=== PATIENT | female | born 1940 | race Caucasian/White ===

== ENCOUNTER → 2016-09-24 | Outpatient (CLI) | payer OTHER | END | disposition home or self-care (01) | LOC: C.LABSPEC 15:13 | PROVIDERS: ATTEND Podiatrist | DX: B35.1 Tinea unguium (principal) ==

== ENCOUNTER → 2016-11-30 | Outpatient (CLI) | payer OTHER ==
--- NOTE | 2016-11-30 12:57 | MAMMOGRAPHY REPORT ---
BILATERAL DIGITAL SCREENING MAMMOGRAM WITH CAD: 11/30/2016 CLINICAL HISTORY: Routine screening. Patient has no complaints. TECHNIQUE: Current study was also evaluated with a Computer Aided Detection (CAD) system. Bilateral CC and MLO views were obtained. COMPARISON: Comparison is made to exams dated: 06/21/2014 mammogram, 06/19/2013 mammogram, 06/17/2012 m ammogram, 06/06/2011 mammogram, 06/05/2010 mammogram, and 06/03/2009 mammogram - [facility] nter. BREAST COMPOSITION: The tissue of both breasts is heterogeneously dense, which may obscure small mas ses. FINDINGS: No suspicious masses, calcifications, or areas of architectural distortion are noted in ei ther breast. There has been no significant interval change compared to prior exams. IMPRESSION: ACR BI-RADS CATEGORY 1: NEGATIVE There is no mammographic evidence of malignancy. A 1 year screening mammogram is recommended. The pa tient will receive written notification of the results. Approximately 10% of breast cancers are not detected with mammography. A negative mammographic report should not delay biopsy if a clinically suggestive mass is present. Doreen Boyd M.D. /:11/30/2016 10:45:12 Optometric Technologist: Nyla Camargo, [facility] letter sent: Normal 1/2 BI-RADS Code: ACR BI-RADS Category 1: Negative
== END | disposition home or self-care (01) ==
LOC: C.MAMM 08:58
PROVIDERS: ATTEND Family Medicine
DX: Z12.31 Encounter for screening mammogram for malignant neoplasm of breast (principal)

== ENCOUNTER → 2017-01-18 | Outpatient (CLI) | payer OTHER ==
[2017-01-18 09:55] LABS: CHOLESTEROL/HDL RATIO 2.9
== END | disposition home or self-care (01) ==
LOC: C.LAB 07:47
PROVIDERS: ATTEND Family Medicine
DX: Z13.220 Encounter for screening for lipoid disorders (principal); Z13.1 Encounter for screening for diabetes mellitus

== ENCOUNTER → 2017-02-25 | Outpatient (CLI) | payer OTHER | END | disposition home or self-care (01) | LOC: C.MAMM 13:00 | PROVIDERS: ATTEND Family Medicine | DX: M85.89 Other specified disorders of bone density and structure, multiple sites (principal) ==

== ENCOUNTER 2017-06-06 15:13 | Emergency (ER) | payer OTHER ==
[~2017-06-06] VITALS: Ht 170.2 cm; Wt 88.0 kg
[2017-06-06 15:24] VITALS: TEMP 37.1; Ht 170.2 cm; Wt 88.0 kg
[2017-06-06] MEDS ORDERED: ACETAMINOPHEN 500 MG TAB PO STA (15:40)
--- NOTE | 2017-06-06 15:55 | EMERGENCY ROOM VISIT NOTE ---
ED Visit Note First contact with patient: 15:31 CHIEF COMPLAINT: Left knee pain HISTORY OF PRESENT ILLNESS: This 76-year-old female patient presents to the emergency department via BLS ambulance, approximately1-2 hours after sustaining an injury to the left knee while walking the dog. The patient reports having left knee pain for approximately one week. She states the pain has been worse after sitting for long periods of time, and seems to improve as she was up walking and moving around. She states the pain has gradually been worsening throughout the past week. This morning, she was walking the dog, and all of a sudden while in the middle of the walk, and after no specific injury, she began experiencing significantly worsening pain of the left knee with weightbearing. She was having difficulty with ambulation due to the pain. She did contact the PCP, and was going to be seen outpatient, however when she tried to shower, she was unable to bear weight on the left leg. She called EMS at that time to be seen in the emergency department. The patient denies any other injuries besides their knee. The patient does report swelling, but no bruising. There is pain in the superior/anterior aspect of the knee. They rate the pain as sharp and 8/10. The patient states they were able to walk on it, but now are unable to do this. No numbness or tingling. No previous injuries to this knee. No redness. No hx. of DVT. No ankle, foot or hip pain. Of note, the patient did have dental surgery last week, and was on antibiotics for a few days. She states she was taking amoxicillin. REVIEW OF SYSTEMS: A 6 system review of systems was completed with positives and pertinent negatives listed in the HPI. ALLERGIES: None MEDICATIONS: None PMH: Glaucoma SOCIAL HISTORY: The patient lives locally with family. She denies drug, alcohol , tobacco use. PHYSICAL EXAM: Vital Signs: Reviewed Nurse's notes, vital signs stable. GENERAL : This is a 76-year-old white female, no acute distress, but appears in pain, well-developed, well-nourished. MENTAL STATUS: Alert, oriented to person place and time, and cooperative. MUSCULOSKELETAL: The left knee is moderately swollen. There is no ecchymosis. There is joint effusion present. The patient is tender in the superior, lateral aspect of the knee, superior to the patella. There is no joint line tenderness. The patella does appropriately subluxate. Range of motion is full, however full extension is painful. Strength of the quads and hamstrings is 3/5. Harpreet's is negative. Aniyah's and Anterior Drawer tests are negative. There is discomfort with varus and valgus stressing. The foot and toes are warm and well-perfused. Dorsalis pedis pulse 2+. Sensation to pain and light touch is intact. Capillary refill less than 2 seconds. RADIOLOGY: L KNEE 3 VIEWS FINDINGS: Alignment of the left knee is anatomic. No fracture or suspicious lesion is present. There is a small left knee joint effusion. There is joint space narrowing and osteophytosis of the patellofemoral compartment. There is mild osteoarthritis within the medial compartment. IMPRESSION: 1. No acute fracture. 2. Small left knee joint effusion. 3. Moderate osteoarthritis of the patellofemoral compartment and mild osteoarthritis of the medial compartment. EMERGENCY DEPARTMENT COURSE: I examined the patient. She was given 1000mg Tylenol for her pain with minimal relief. X-rays of the left knee were reviewed by myself and read by radiology and reveal mild-moderate osteoarthritis. The patient was placed in a knee immobilizer under my direction and the position was satisfactory. The patient was instructed on the use of a walker, and was assisted with ambulation prior to discharge. All questions were answered to the patient's satisfaction. She was encouraged to follow-up outpatient with orthopedics for further management and care. The patient was discharged home in good condition. I attest that I have personally reviewed the patient's current medication list. Patient was found to have normal blood pressure on screening and does not require follow-up. DIFFERENTIAL DIAGNOSIS: Fracture, contusion, sprain, strain, osteoarthritis, tendinitis, malignancy, and others DIAGNOSIS: left knee pain, osteoarthritis Current/Historical Medications No Active Prescriptions or Reported Meds Allergies Coded Allergies: No Known Allergies (Unverified , 06/06/17) Vital Signs Date Time Temp Pulse Resp B/P (MAP) Pulse Ox O2 Delivery O2 Flow Rate FiO2 06/06/17 17:42 76 20 135/84 96 06/06/17 15:24 37.1 83 18 140/68 97 Room Air Medications Administered Medications (Trade) Dose Ordered Sig/Vianney Route Start Time Stop Time Status Last Admin Dose Admin Acetaminophen (Tylenol Tab) 1,000 mg NOW STAT PO 06/06/17 15:40 06/06/17 15:41 DC 06/06/17 15:49 1,000 MG Departure Information Impression Primary Impression: Knee pain Additional Impression: Osteoarthritis Dispostion Home / Self-Care Condition GOOD Prescriptions No Active Prescriptions or Reported Meds Referrals Clarice Spencer MD (PCP) Tree Smith M.D. Patient Instructions ED Immobilizer Knee, ED Knee Pain [facility], Knee Osteoarthritis, [facility] Additional Instructions You have been treated in the Emergency Department for Knee Pain. For pain control, you can use the following [id number] medicines (if >12 yo): Ibuprofen(Motrin, Advil) may be used for fever or pain. Use 600mg every six hours as needed. Take with food. Avoid using more than 2400mg in a 24 hour period. Do not use 2400mg per day for more than three consecutive days without physician direction. Prolonged inappropriate use can lead to stomach upset or ulcers. (AND/OR) Acetaminophen(Tylenol) may be used for fever or pain. Use 1000mg every six hours as needed. Avoid using more than 3000mg in a 24 hour period. You may consider Fish Oil (2000mg daily), Glucosamine (as directed on bottle), and Tumeric (500mg daily) to help with arthritis pain. If this is a recent injury (<24 hrs), ice can be applied to the area of pain for the first 3 days to help decrease pain and inflammation. Ice massages can be performed by freezing water in a paper cup, peeling back the cup to expose the ice and then massaging over the affected area. You have been provided the number for an Orthopaedic Surgeon. You should call this number as soon as possible to establish a follow-up visit from today's Emergency Department visit. Follow-up with the PCP within 1 week if you are unable to be seen by orthopedics before then. Keep the knee brace in place until cleared by Orthopedics or until pain free. Use the crutches you have been provided to keep ALL weight off of the knee until weight bearing is tolerable. Return to the Emergency Department if your current symptoms worsen despite treatment course outlined above. Problem Qualifiers Primary Impression: Knee pain Chronicity: acute Laterality: left Qualified Codes: M25.562 - Pain in left knee Additional Impression: Osteoarthritis Osteoarthritis location: knee Osteoarthritis type: unspecified Laterality: left Qualified Codes: M17.12 - Unilateral primary osteoarthritis, left knee
--- NOTE | 2017-06-06 16:48 | DIAGNOSTIC IMAGING REPORT ---
L KNEE 3 VIEWS CLINICAL HISTORY: Left knee pain. COMPARISON: None FINDINGS: Alignment of the left knee is anatomic. No fracture or suspicious lesion is present. There is a small left knee joint effusion. There is joint space narrowing and osteophytosis of the patellofemoral compartment. There is mild osteoarthritis within the medial compartment. IMPRESSION: 1. No acute fracture. 2. Small left knee joint effusion. 3. Moderate osteoarthritis of the patellofemoral compartment and mild osteoarthritis of the medial compartment. Electronically signed by: Corky Mcdonald M.D. 06/06/2017 4:47 PM Dictated Date/Time: 06/06/2017 4:46 PM
[2017-06-06 17:42] VITALS: BP 135/84; PULSE 76; O2SAT 96
== END 2017-06-06 17:45 | disposition home or self-care (01) ==
LOC: EDBD 15:13 → C.EDD 15:17
DX: M25.562 Pain in left knee (principal); M17.12 Unilateral primary osteoarthritis, left knee; M25.462 Effusion, left knee; H40.9 Unspecified glaucoma

== ENCOUNTER → 2017-08-12 | Outpatient (CLI) | payer OTHER ==
[2017-08-12 09:40] LABS: BASO % 0.4 %; BASO ABS # 0.03 K/uL (0-0.2); EOS % 2.7 %; EOS ABS # 0.18 K/uL (0-0.5); HEMATOCRIT 43.4 % (37-47); HEMOGLOBIN 14.4 g/dL (12.0-16.0); IG# 0.01 K/uL (0.00-0.02); LYMPH % 26.9 %; LYMPH ABS # 1.82 K/uL (1.2-3.4); MEAN CELL VOLUME 98.9 fL (80-100); MEAN CORPUSCULAR HEMOGLOBIN 32.8 pg (25-34); MEAN CORPUSCULAR HGB CONC 33.2 g/dl (32-36); MEAN PLATELET VOLUME 11.6 fL (7.4-10.4); MONO ABS # 0.61 K/uL (0.11-0.59); NEUT % 60.9 %; NEUT ABS # 4.12 K/uL (1.4-6.5); PLATELET COUNT 231 K/uL (130-400); RED CELL DISTRIBUTION WIDTH CV 12.6 % (11.5-14.5); RED CELL DISTRIBUTION WIDTH SD 45.8 fL (36.4-46.3); WHITE BLOOD COUNT 6.77 K/uL (4.8-10.8)
== END | disposition home or self-care (01) ==
LOC: C.LAB 08:10
PROVIDERS: ATTEND Orthopaedic Surgery Sports Medicine
DX: M84.452 Pathological fracture, left femur (principal); X58.XXXD Exposure to other specified factors, subsequent encounter

== ENCOUNTER → 2017-08-28 | Day surgery (SDC) | payer OTHER ==
[2017-07-12 15:48] VITALS: BMI 28.0
--- NOTE | 2017-08-27 16:16 | HISTORY & PHYSICAL EXAMINATION ---
DATE OF ADMISSION: 08/28/2017 CHIEF COMPLAINT: Left knee injury. HISTORY OF PRESENT ILLNESS: The patient has 1 month history of left knee pain and instability. She has been using a cane, describing some catching-type activities. Most of her pain is medial. MRI has confirmed a stress fracture of medial femoral condyle that being an insufficiency fracture. She also has a medial meniscus tear at the root. After failure of conservative treatment and given her diagnosis, the patient wished to proceed with a left knee arthroscopic partial medial meniscectomy, repair of insufficiency fracture of the medial femoral condyle with bone substitute injection. PAST MEDICAL HISTORY: Obesity. Otherwise, this is a healthy 76-year-old female with no heart, lung cancer, or diabetic history. SOCIAL HISTORY: The patient was a lifelong smoker. She quit in 1972. She is a nonalcohol user. PAST SURGICAL HISTORY: D and C, oral surgery, and eye surgery. REVIEW OF SYSTEMS: The patient complains of left knee pain and instability. Otherwise denies any shortness of breath, chest pain, nausea, vomiting or any other joint complaints. MEDICATIONS: No regular medications. ALLERGIES: No known drug allergies. PHYSICAL EXAMINATION: GENERAL: Well-developed, well-nourished 76-year-old female, in no acute distress. She is alert and oriented x3 and pleasant. HEENT: Normocephalic, atraumatic. Extraocular muscles are intact. Pupils are equal, reactive to light. HEART: Regular rate and rhythm. No murmurs appreciated. LUNGS: Clear. ABDOMEN: Soft, nontender, bowel sounds present. EXTREMITIES: Left knee reveals medial joint line tenderness as well as medial femoral condyle tenderness. She has positive Alex's medially. She has painful range of motion, although it is full. She has 4/5 strength due to pain. NEUROLOGIC: Neurovascularly, she is intact in her left lower extremity. DIAGNOSES: Left knee insufficiency fracture of medial femoral condyle and medial meniscus tear. She also has a history of obesity. PLAN: This is a patient of Dr. Luis. She is a 76-year-old female. The patient wished to proceed with a left knee arthroscopic partial medial meniscectomy and repair of insufficiency fracture, medial femoral condyle with bone injection substitute. Necessary consent forms, preoperative clearances will be obtained.
[~2017-08-28] VITALS: Ht 170.2 cm; Wt 85.0 kg
[~2017-08-28] MED LIST: ATROPINE SULFATE 0.1 MG/ML 5ML SYR IV PRN; BUPIVACAINE 0.25% 30 ML VIAL ONE; CEFAZOLIN 2000MG IV PUSH 15 ML IV SCH; EpINEphrine HCL INJ 1 MG/ML 1ML SYRINGE ONE; FENTANYL CITRATE INJ 50 MCG/1 ML 2 ML VIAL ONE; HYDR-5688 PO; HYDROCODONE/ACETAMIN 5/325MG TAB PO PRN; IBUP200T80 PO; KETOROLAC TROMETHAMINE 15 MG/ML VIAL IV. PRN; KETOROLAC TROMETHAMINE 30 MG/ML VIAL ONE; LACTATED RINGER'S 1000ML 1,000 ML IV SCH; LIDOCAINE HCL 2% 2 ML VIAL (20MG/ML) ONE; MIDAZOLAM HCL 1 MG/ML 2ML VIAL ONE; MoRPHine SULFATE 2 MG/ML CARP ONE; ONDANSETRON INJ 2 MG/ML 2 ML VIAL IV PRN; ONDANSETRON INJ 2 MG/ML 2 ML VIAL ONE; PROPOFOL IV EMULSION 10 MG/ML 20 ML VIAL IV ONE; SODIUM CHLORIDE 0.9% 1000ML 1,000 ML IV SCH
[2017-08-28 05:37] VITALS: BP 158/76; PULSE 72; TEMP 36.7; O2SAT 100; Ht 170.2 cm; Wt 85.0 kg
--- NOTE | 2017-08-28 06:46 | History & Physical Bridge Note ---
H&P Re-Evaluation Bridge Note: I have examined the patient, reviewed the History & Physical and in the interval since the performance of the History & Physical I have noted the following changes of clinical significance: No changes noted
--- NOTE | 2017-08-28 08:08 | Discharge Instructions ---
Discharge Instructions Date of Service Aug 28, 2017. Admission Reason for Admission: Left Knee Insufficiency Fracture Medial Femoral Co Discharge Discharge Diagnosis / Problem: LEFT KNEE SCOPE, PARTIAL MEDIAL MENISECTOMY, INJECTION BONE SUBSTITUTE Discharge Goals Goal(s): Improve function Activity Recommendations Activity Limitations: as noted below . Instructions / Follow-Up Instructions / Follow-Up MAY WEIGHT BEAR TOLERATED BUT MUST USE A WALKER UNTIL FOLLOW UP IN OFFICE. ICE/ ELEVATE LEG NEEDED. MAY CHANGE DRESSING POST OP DAY #2 AND REPL[address] WITH BAND AIDES OVER PORTAL INCISIONS. MAY SHOWER POST OP DAY #2, DO NOT SUBMERGE INCISIONS UNDERWATER. NORCO PAIN MEDICINE DIRECTED NEEDED. NO FORMAL PHYSICAL THERAPY NEEDED UNTIL AFTER FOLLOW UP IN THE OFFICE, MAY DO QUAD SETS AND STRAIGHT LEG RAISES AT HOME. FOLLOW UP WITH DR. SWANSON 10-12 DAYS POST OP, CALL [phone] TO CONFIRM APPT. Current Hospital Diet Patient's current hospital diet: Discharge Diet Recommended Diet: Regular Diet Pending Studies Studies pending at discharge: no Medical Emergencies . Who to Call and When: Medical Emergencies: If at any time you feel your situation is an emergency, please call 911 immediately. . Non-Emergent Contact Non-Emergency issues call your: Primary Care Provider . "Provider Documentation" section prepared by Rigoberto Noyola. . [place] Drug Monitoring Program Search Results: patient reviewed within database, no issues identified
--- NOTE | 2017-08-28 08:20 | [facility] Post Operative Brief Note ---
Immediate Operative Summary Operative Date Aug 28, 2017. Pre-Operative Diagnosis Left knee insufficiency fracture of medial femoral condyle and medial meniscus tear. Post-Operative Diagnosis Same as preoperative. Procedure(s) Performed Left Knee Arthroscopic Repair of Insufficiency Fracture Medial Femoral Condyle with Injection Bone Substitue, Partial Medial Menisectomy,chondroplasty medial compartment and patellofemoral joint Surgeon Flume Worker Surgeon(s) None Estimated Blood Loss 3ML Findings Consistent with Post-Op Diagnosis Specimens None per surgeon Drains None Anesthesia Type General Complication(s) none
[2017-08-28] MEDS: FENTANYL CITRATE INJ 50 MCG/1 ML 2 ML VIAL IV PRN ×4 (08:38→08:53)
--- NOTE | 2017-08-28 08:46 | DIAGNOSTIC IMAGING REPORT ---
INTRAOPERATIVE RADIOGRAPH CLINICAL HISTORY: Insufficiency fracture of the left knee. Fluoroscopy time: 35 seconds. FINDINGS: A single spot fluoroscopic image of the left knee is presented. A surgical probe projects over the medial femoral condyle. Cement material is noted. No cement material is identified and joint space. No distracted fracture is seen. IMPRESSION: Intraoperative image from femoral insufficiency fracture repair as above. See operative report for detailed findings. Electronically signed by: Duran Addison M.D. 08/28/2017 8:45 AM Dictated Date/Time: 08/28/2017 8:44 AM
--- NOTE | 2017-08-28 09:03 | Anesthesiology Progress Note ---
Anesthesia Post Op Note Date & Time Aug 28, 2017 at 09:03 Vital Signs Vital Signs Past 12 Hours Date Time Temp Pulse Resp B/P (MAP) Pulse Ox O2 Delivery O2 Flow Rate FiO2 08/28/17 08:40 74 16 144/76 100 Oxymask 10 08/28/17 08:30 85 19 112/86 100 Oxymask 10 08/28/17 08:23 36.5 81 12 146/89 98 Oxymask 10 08/28/17 05:37 36.7 72 20 158/76 (103) 100 Room Air Notes Mental Status: alert / awake / arousable, participated in evaluation Pt Amnestic to Procedure: Yes Nausea / Vomiting: adequately controlled Pain: adequately controlled Airway Patency, RR, SpO2: stable & adequate BP & HR: stable & adequate Hydration State: stable & adequate Anesthetic Complications: no major complications apparent
[2017-08-28 09:25] VITALS: BP 143/67; PULSE 61; TEMP 36.4; O2SAT 95
[2017-08-28 09:55] VITALS: BP 130/61; PULSE 62; TEMP 36.5; O2SAT 97
[2017-08-28 10:25] VITALS: BP 128/61; PULSE 63; TEMP 36.5; O2SAT 97
--- NOTE | 2017-08-28 20:07 | OPERATIVE REPORT ---
undulationDATE OF OPERATION: 08/28/2017 INDICATION FOR PROCEDURE: The patient is a 76-year-old female who presents with pain and discomfort in her left knee. She was worked up with plain x-rays, which demonstrated maintained good joint spaces. MRI, however, demonstrated bone edema in the medial femoral condyle consistent with insufficiency fracture in medial femoral condyle, bone marrow lesion, and has a root detachment posterior horn of the medial meniscus with intrameniscal degenerative changes. She has joint effusion. PREOPERATIVE DIAGNOSIS: Left knee insufficiency fracture, medial femoral condyle; root detachment posterior horn of the medial meniscus with medial meniscus tear; degenerative joint disease, medial compartment. POSTOPERATIVE DIAGNOSIS: Left knee insufficiency fracture, medial femoral condyle; root detachment posterior horn of the medial meniscus with medial meniscus tear; degenerative joint disease, medial compartment; and patellofemoral degenerative joint disease. PROCEDURE: Left knee arthroscopy with partial meniscectomy, chondroplasty of patellofemoral joint medial compartment and repair insufficiency fracture, medial femoral condyle, left femur with injectable bone substitute. SURGEON: Tony Meyer MD BLUEPRINT ASSEMBLER: None. ANESTHESIA: General. OPERATIVE PROCEDURE: The patient was taken to the operating room and anesthetized under general anesthetic. Pneumatic tourniquet was placed on her left upper thigh. Left knee exam demonstrated good range of motion, moderately large effusion and no instability. Left lower extremity was prepped and draped in sterile fashion. Leg was elevated, exsanguinated with an Esmarch bandage. Pneumatic tourniquet was raised to 325 mmHg. Arthroscopy was initiated with inferolateral arthroscopy portal and inferior medial arthroscopy portal was made. The following findings were noted. The patellofemoral joint, she had global grade 3 wear on the patella, the trochlear groove an advanced grade 3, and the lower aspect was grade 4 wear of the articular cartilage in the central trochlear groove toward the lateral femoral condyle. There were delaminating flaps around the areas of grade 4 wear. In the medial compartment, she had significant articular thinning grade 3 wear of the medial femoral condyle with flattening flaps around the quite thin area of articular cartilage in the femoral condyle. She had a lot of undulation fissures and erosion in the tibial plateau articular surface as well but no loose articular cartilage there, but there was thinning grade 2-3 wear on tibial plateau. Medial meniscus, she had a root detachment of posterior horn with small inner margin flap. Cruciate ligaments were intact. Lateral compartment had good articular surfaces and normal lateral meniscus. There were some loose cartilaginous debris floating about the knee. An arthroscopic chondroplasty was performed to the affected areas of grade 3 wear and the laminating flaps moving all loose laminating flaps and smoothing down grade 3 areas of wear. All loose fragments were removed from the knee joint. A partial medial meniscectomy was performed by trimming the small flap tear, removing that completely and tapering the edges of the torn posterior horn and the remainder meniscus was probed noted to be stable. Knee was irrigated free of any debris. Then the fluoroscopy was brought in. Used a spinal needle to localize the area of the medial femoral condyle insufficiency fracture in AP and lateral views then the trocar was advanced into the femoral condyle and the injectable bone substitute was mixed and injected and allowed the appropriate 8 minutes to allow this to harden. Trocar was removed. The knee was injected with 30 mL of Marcaine with epinephrine. Port sites were closed with nylon sutures. Sterile dressings were applied and tourniquet was let down and the patient tolerated the procedure well. I attest to the content of the Intraoperative Record and any orders documented therein. Any exceptions are noted below. JULIANNA
== END | disposition home or self-care (01) ==
LOC: C.ACU 04:53
PROVIDERS: ATTEND Orthopaedic Surgery Sports Medicine
DX: M84.452A Pathological fracture, left femur, initial encounter for fracture (principal); S83.242A Other tear of medial meniscus, current injury, left knee, initial encounter; M17.12 Unilateral primary osteoarthritis, left knee; M22.2X2 Patellofemoral disorders, left knee; X58.XXXA Exposure to other specified factors, initial encounter; E66.9 Obesity, unspecified; Z87.891 Personal history of nicotine dependence; Z79.899 Other long term (current) drug therapy

== ENCOUNTER 2019-04-15 23:23 | Observation (INO) ==
[2019-04-15] MEDS ORDERED: SODIUM CHLORIDE 0.9% 1000ML 1,000 ML IV ONE (23:51)
[2019-04-16 00:06] LABS: Basophils # (auto) 0.03 K/uL (0-0.2); Basophils % (auto) 0.4 %; Eosinophils # (auto) 0.24 K/uL (0-0.5); Eosinophils % (auto) 3.2 %; Hematocrit (blood only) 40.6 % (37-47); Hemoglobin 13.9 g/dL (12.0-16.0); Immature Granulocytes # (auto) 0.01 K/uL (0.00-0.02); Immature Granulocytes % (auto) 0.1 %; Lymphocytes # (auto) 2.79 K/uL (1.2-3.4); Lymphocytes % (auto) 36.7 %; Mean Corpuscular Hemoglobin 33.5 pg (25-34); Mean Corpuscular Hgb Conc 34.2 g/dL (32-36); Mean Corpuscular Volume 97.8 fL (80-100); Mean Platelet Volume 11.6 fL (7.4-10.4); Monocytes # (auto) 1.03 K/uL (0.11-0.59); Monocytes % (auto) 13.6 %; Platelet Count 220 K/uL (130-400); RDW Coefficient of Variation 12.4 % (11.5-14.5); RDW Standard Deviation 44.2 fL (36.4-46.3); Red Blood Count 4.15 M/uL (4.2-5.4)
[2019-04-16 00:18] LABS: Prothrombin Time 9.9 Seconds (9.0-12.0)
[2019-04-16 00:37] LABS: Alanine Aminotransferase 25 U/L (12-78); Albumin Level 3.3 gm/dl (3.4-5.0); BUN Creatinine Ratio 26.3 (10-20); Blood Urea Nitrogen 24 mg/dl (7-18); Calcium 9.9 mg/dl (8.5-10.1); Carbon Dioxide 25 mmol/L (21-32); Chloride 110 mmol/L (98-107); Creatinine Clr Calc Pharmacy 58.2 ml/min; Est GFR (African American) 70.1; Est GFR (Non-African American) 60.5; Glucose 97 mg/dl (70-99); Lipase 216 U/L (73-393); Sodium 140 mmol/L (136-145)
[2019-04-16 00:56] LABS: Albumin Globulin Ratio 0.8 (0.9-2); Alkaline Phosphatase 127 U/L (45-117); Aspartate Aminotransferase 20 U/L (15-37); Bilirubin,Total 0.2 mg/dl (0.2-1); Globulin 4.1 gm/dl (2.5-4.0); Magnesium 2.1 mg/dl (1.8-2.4); Potassium 4.3 mmol/L (3.5-5.1); Total Protein 7.4 gm/dl (6.4-8.2); Troponin I < 0.015 ng/ml (0-0.045)
[2019-04-16] MEDS ORDERED: OPTIRAY 320 125ml IV PRN (01:20)
[2019-04-16 01:27] LABS: T4 Free Thyroxine 0.86 ng/dl (0.8-1.6)
--- NOTE | 2019-04-16 02:03 | Emergency Department Note ---
Entered by Earlene Dean acting as a scribe for History of Present Illness General Chief complaint: Neuro Symptoms/Deficit Stated complaint: NUMBNESS ON RIGHT SIDEOF BODY Time Seen by Provider: 04/15/19 23:37 History of Present Illness Provider complaint: neurological symptoms Onset (ago): hour(s) (11) Pain Consistency: + other (episode) Maximum Pain Intensity: 3 Quality: + other (neurological symptoms) Associated symptoms: + denies other symptoms (congestion) and + other (right sided numbness starting in right upper extremity and radiating to right lower extremity, slight dizziness, can feel touch on right side, family history of stroke); no cough, no fever/chills and no headaches Treatments prior to arrival: none The patient is a 78 year old female who presents to the ED with complaints of an episode of neurological symptoms that started approximately 11 hours ago. The patient states that she had right sided numbness that started in her upper ex tremity which then radiated to her right lower extremity as time progressed. The patient states that she has slight dizziness as well. The patient denies fever, chills, cough, congestion and headache. The patient notes that she can feel touch to the right side of her body. The patient notes that she has a family history of stroke. The patient denies taking any treatments prior to arrival. Home Medications Home Medications Medication Instructions Recorded Confirmed Type No Known Home Medications 04/16/19 04/16/19 History Allergies Allergy/AdvReac Type Severity Reaction Status Date / Time No Known Drug Allergies Allergy NKDA Verified 04/16/19 00:13 Past Med/Surg History Medical History No known health problems Surgical History History of arthroscopy LEFT KNEE History of colonoscopy History of laparoscopy S/P laser trabeculoplasty of eye RIGHT Family History Brother Prostate cancer Mother Cervical cancer Father Prostate cancer Social History Preferred Language: Romansh Communication Ability: Effective Visual Impairment: No Limitations Hearing Ability: Normal Transportation Mechanic Required: No Beliefs That Will Affect Care: None marital status: Current Living Situation: Spouse current occupational status: retired Other Information That Helps Us Care for You: No Feels Safe at Home: Yes Safety Concerns: Feels Safe At This Time Smoking Status: Unknown if ever smoked Hx Alcohol Use: No Hx Substance Use: No Childhood Exposure to Second-Hand Smoke: Yes Dental Care, Regularly: Yes Physical Activity Frequency: Daily Seatbelt Use: always Sunscreen Use: Yes Review of Systems See HPI for pertinent positives & negatives. and A total of 10 systems reviewed and were otherwise negative Physical Exam Vital Signs Vital Signs - 24 hr 04/15/19 23:27 04/15/19 23:54 04/15/19 23:55 Temperature 36.6 C Temperature Source Oral Pulse Rate 70 Pulse Rate [Right Finger] 70 Pulse Rate from SpO2 Sensor Pulse Rhythm [Right Finger] Regular Pulse Strength [Right Finger] Normal Respiratory Rate 16 20 Respiratory Effort / Characteristics Non-Labored Spontaneous Non-Labored Spontaneous Respiratory Depth Normal Normal Respiratory Pattern Regular Blood Pressure 166/91 H Blood Pressure [Right Arm] 155/76 H Blood Pressure Mean 116 Blood Pressure Mean [Right Arm] 102 Blood Pressure Position Sitting Blood Pressure Position [Right Arm] Sitting Pulse Oximetry 99 95 94 Oxygen Delivery Method Room Air Room Air Room Air Sepsis Recent Fever Within 48 Hours No Sepsis Action Taken by Nursing No Action Required Pulse Oximetry Post Tiitration 95 04/16/19 01:23 04/16/19 02:01 04/16/19 02:30 Temperature Temperature Source Pulse Rate 64 66 Pulse Rate [Right Finger] 73 Pulse Rate from SpO2 Sensor 63 66 Pulse Rhythm [Right Finger] Pulse Strength [Right Finger] Respiratory Rate 20 17 12 Respiratory Effort / Characteristics Non-Labored Spontaneous Respiratory Depth Normal Respiratory Pattern Blood Pressure 141/77 H Blood Pressure [Right Arm] 156/96 H Blood Pressure Mean 98 Blood Pressure Mean [Right Arm] 116 Blood Pressure Position Blood Pressure Position [Right Arm] Lying Pulse Oximetry 97 96 97 Oxygen Delivery Method Room Air Sepsis Recent Fever Within 48 Hours Sepsis Action Taken by Nursing Pulse Oximetry Post Tiitration GENERAL: Awake, alert, well-appearing, in no distress HENT: Normocephalic, atraumatic. Oropharynx with dry mucous membranes and otherwise unremarkable. EYES: Normal conjunctiva. Sclera non-icteric. EOMI. No nystamgus. PEARRL. NECK: Supple. No nuchal rigidity. FROM. No JVD. RESPIRATORY: Clear to auscultation bilaterally. CARDIAC: Regular rate, normal rhythm. Extremities warm and well perfused. Pulses equal. ABDOMEN: Soft, non-distended. No tenderness to palpation. No rebound or guarding. No masses. RECTAL: Deferred. MUSCULOSKELETAL: Chest examination reveals no tenderness. The back is symmetrical on inspection without obvious abnormality. There is no CVA tende rness to palpation. No joint edema. LOWER EXTREMITIES: Calves are equal size bilaterally and non-tender. No edema. No discoloration. NEURO: Normal sensorium. No sensory or motor deficits noted. Cerebellar function intact, including finger to nose, alternating palms, heel to sloan. 5/5 strength and SILT x4 extremities. SKIN: No rash or jaundice noted. Course Course 2344: Past medical records reviewed. The patient was evaluated in room C4. A complete history and physical exam was performed. 0207: [facility] He will evaluate the patient for further management. Consultations Consultation #1: I discussed the [facility] He will evaluate the patient for further management. Time: 02:07 Administered Medications Ioversol (Optiray 320 125ml) 125 ml IV ONCE PRN PRN Reason: Interaction Checking Stop: 04/20/19 01:19 Last Admin: 04/16/19 01:21 Dose: 118 ml Documented by: [id number] Discontinued Medications Aspirin (Aspirin) 324 mg PO NOW STA Stop: 04/16/19 02:10 Last Admin: 04/16/19 02:42 Dose: 324 mg Documented by: [id number] Sodium Chloride (Nss 1000ml) 1,000 mls @ 999 mls/hr IV .Q1H1M ONE Stop: 04/16/19 00:51 Last Infusion: 04/16/19 01:20 Dose: 0 mls/hr Documented by: [id number] Admin: 04/15/19 23:59 Dose: 999 mls/hr Documented by: [id number] Medical Decision Making Differential Diagnosis Differential diagnosis: Etiologies such as metabolic, infection, hypo/hyperglycemia, electrolyte abnormalities, cardiac sources, intracerebral event, toxicologic, neurologic, as well as others were entertained. Medical Records Attestation: I reviewed the patient's medical records. Home Medications Current Medication List: was personally reviewed by me Laboratory Data Attestation: I reviewed the patient's lab results. Result diagrams: 04/15/19 23:41 04/15/19 23:41 Lab Results 04/15/19 04/15/19 04/15/19 Range/Units 23:41 23:41 23:41 WBC 7.60 (4.8-10.8) K/uL RBC 4.15 L (4.2-5.4) M/uL Hgb 13.9 (12.0-16.0) g/dL Hct 40.6 (37-47) % MCV 97.8 (80-100) fL MCH 33.5 (25-34) pg MCHC 34.2 (32-36) g/dL RDW Std Deviation 44.2 (36.4-46.3) fL RDW Coeff of Brando 12.4 (11.5-14.5) % Plt Count 220 (130-400) K/uL MPV 11.6 H (7.4-10.4) fL Immature Gran % (Auto) 0.1 % Neut % (Auto) 46.0 % Lymph % (Auto) 36.7 % Webb % (Auto) 13.6 % Eos % (Auto) 3.2 % Baso % (Auto) 0.4 % Immature Gran # (Auto) 0.01 (0.00-0.02) K/uL Neut # (Auto) 3.50 (1.4-6.5) K/uL Lymph # (Auto) 2.79 (1.2-3.4) K/uL Webb # (Auto) 1.03 H (0.11-0.59) K/uL Eos # (Auto) 0.24 (0-0.5) K/uL Baso # (Auto) 0.03 (0-0.2) K/uL PT 9.9 (9.0-12.0) Seconds INR 1.0 (0.9-1.1) Sodium 140 (136-145) mmol/L Potassium 4.3 (3.5-5.1) mmol/L Chloride 110 H (98-107) mmol/L Carbon Dioxide 25 (21-32) mmol/L Anion Gap 5.0 (3-11) BUN 24 H (7-18) mg/dl Creatinine 0.92 (0.6-1.2) mg/dl Est Cr Clr Drug Dosing 58.2 ml/min Est GFR ( Amer) 70.1 Est GFR (Non-Af Amer) 60.5 BUN/Creatinine Ratio 26.3 H (10-20) Glucose 97 (70-99) mg/dl Calcium 9.9 (8.5-10.1) mg/dl Phosphorus 3.0 (2.5-4.9) mg/dl Magnesium 2.1 (1.8-2.4) mg/dl Total Bilirubin 0.2 (0.2-1) mg/dl AST 20 (15-37) U/L ALT 25 (12-78) U/L Alkaline Phosphatase 127 H (45-117) U/L Troponin I < 0.015 (0-0.045) ng/ml Total Protein 7.4 (6.4-8.2) gm/dl Albumin 3.3 L (3.4-5.0) gm/dl Globulin 4.1 H (2.5-4.0) gm/dl Albumin/Globulin Ratio 0.8 L (0.9-2) Lipase 216 (73-393) U/L TSH 6.020 H (0.300-4.500) uIu/ml Free T4 0.86 (0.8-1.6) ng/dl Specimen Hemolysis Urine Color Urine Appearance (Clear) Urine pH (4.5-7.5) Ur Specific Naylor (1.000-1.030) Urine Protein (Negative) Urine Glucose (UA) (Negative) Urine Ketones (Negative) Urine Blood (Negative) Urine Nitrite (Negative) Urine Bilirubin (Negative) Urine Urobilinogen (Negative) Ur Leukocyte Esterase (Negative) 04/16/19 Range/Units 02:35 WBC (4.8-10.8) K/uL RBC (4.2-5.4) M/uL Hgb (12.0-16.0) g/dL Hct (37-47) % MCV (80-100) fL MCH (25-34) pg MCHC (32-36) g/dL RDW Std Deviation (36.4-46.3) fL RDW Coeff of Brando (11.5-14.5) % Plt Count (130-400) K/uL MPV (7.4-10.4) fL Immature Gran % (Auto) % Neut % (Auto) % Lymph % (Auto) % Webb % (Auto) % Eos % (Auto) % Baso % (Auto) % Immature Gran # (Auto) (0.00-0.02) K/uL Neut # (Auto) (1.4-6.5) K/uL Lymph # (Auto) (1.2-3.4) K/uL Webb # (Auto) (0.11-0.59) K/uL Eos # (Auto) (0-0.5) K/uL Baso # (Auto) (0-0.2) K/uL PT (9.0-12.0) Seconds INR (0.9-1.1) Sodium (136-145) mmol/L Potassium (3.5-5.1) mmol/L Chloride (98-107) mmol/L Carbon Dioxide (21-32) mmol/L Anion Gap (3-11) BUN (7-18) mg/dl Creatinine (0.6-1.2) mg/dl Est Cr Clr Drug Dosing ml/min Est GFR ( Amer) Est GFR (Non-Af Amer) BUN/Creatinine Ratio (10-20) Glucose (70-99) mg/dl Calcium (8.5-10.1) mg/dl Phosphorus (2.5-4.9) mg/dl Magnesium (1.8-2.4) mg/dl Total Bilirubin (0.2-1) mg/dl AST (15-37) U/L ALT (12-78) U/L Alkaline Phosphatase (45-117) U/L Troponin I (0-0.045) ng/ml Total Protein (6.4-8.2) gm/dl Albumin (3.4-5.0) gm/dl Globulin (2.5-4.0) gm/dl Albumin/Globulin Ratio (0.9-2) Lipase (73-393) U/L TSH (0.300-4.500) uIu/ml Free T4 (0.8-1.6) ng/dl Specimen Hemolysis Urine Color Yellow Urine Appearance Clear (Clear) Urine pH 7.0 (4.5-7.5) Ur Specific Naylor 1.033 H (1.000-1.030) Urine Protein Negative (Negative) Urine Glucose (UA) Negative (Negative) Urine Ketones Negative (Negative) Urine Blood Negative (Negative) Urine Nitrite Negative (Negative) Urine Bilirubin Negative (Negative) Urine Urobilinogen Negative (Negative) Ur Leukocyte Esterase Negative (Negative) Imaging Data Attestation: I personally reviewed and interpreted this imaging study as follows: Radiologist's Impression: STATRAD: Preliminary Findings Only See Final Report For Complete Findings CT HEAD: No intracranial hemorrhage, midline shift or mass effect. No evidence for cortical infarct. Paranasal sinuses and mastoid air cells are well-aerated. Radiologist: Julius Tyler MD Study ready at 01:19 and initial results transmitted at 01:49 Preliminary Findings Only See Final Report For Complete Findings CTA HEAD: The petrous, cavernous and supraclinoid internal carotid arteries are widely patent. The A1 segments and anterior cerebral arteries are patent. The M1 segments and distal middle cerebral branches are patent. No occlusion, sig nificant stenosis, dissection or aneurysm is identified. The distal vertebral arteries are patent. The basilar artery is patent with incidental fenestration. No dissection or occlusion identified. The posterior cerebral arteries are patent. There is an incidental left posterior communicating artery identified. No aneurysm. No abnormal enhancement. Radiologist: Julius Tyler MD Study ready at 01:19 and initial results transmitted at 01:53 ---- Preliminary Findings Only See Final Report For Complete Findings CTA NECK: Negative cervical CTA examination. The aortic arch is patent without occlusion. The proximal great vessels are unremarkable. The brachiocephalic and common carotid arteries are widely patent. The carotid bifurcations are widely patent without significant narrowing or disease. The internal and external carotid arteries are patent. The vertebral arteries are patent with the left vertebral artery dominant. No dissection, occlusion, stenosis or other abnormality identified. The lung bases and soft tissues demonstrate no significant abnormality. No acute osseous abnormality. Mild degenerative changes incidentally noted. Radiologist: Julius Tyler MD Study ready at 01:21 and initial results transmitted at 01:54 ECG Data Attestation: I personally reviewed and interpreted this ECG as follows: Indication: + other (right sided numbness) Rate (beats per minute): 66 Rhythm: + normal sinus ECG Hostetter: + Normal ECG ST segments: + Nonspecific ST abnormalities; no ST depression and no ST elevation ECG Findings: + Other (QTC 438, QRS 88); no PACs and no PVCs Blood Pressure Blood Pressure Findings: Elevated blood pressure Blood Pressure Disposition: further management by hospitalist ELMIRA Narrative The patient is a pleasant 78-year-old woman who presents emergency department with evolving right-sided numbness and tingling since early this afternoon initially beginning in her right lower extremity progressing to her right upper extremity and face prescribed. Patient denies any symptoms of weakness or imbalance. She reports able to ambulate without difficulty. She denies any recent illnesses, fevers chills cough congestion chest pain shortness of breath. She reports that she does not take any medications does follow with her PCP annually. On arrival the patient is afebrile with BP 160/90s and otherwise VSS. Patient appears clinically. Speech is fluent. She reports subjective numbness of her right face, arm and leg but exhibits 5/5 strength and SILT x 4 extremities. Cerebellar function intact including [id number], alternating palms, [id number]. EKG without overt acute ischemia. Chest x-ray negative for acute process per my preliminary read. WBC, H/H and platelets within normal limits. Chemistry without acidosis. BUN/creatinine> 20 consistent with the patient's clinically dry appearance. Electrolytes and LFTs otherwise unremarkable. Troponin negative/undetectable. TSH is elevated at 6 but with free T4 within normal limits. Per preliminary stat read report CT head and CTA head and neck negative for ICH, ischemia, severe narrowing or occlusion of large vessels. ABCD stroke risk is moderate. Reasonable to admit for further evaluation. Patient agreeable. Case was discussed with Dr. East, [facility] hospitalist, who will evaluate the patient for admission. Continuous Cardiac Monitoring: Indication: Numbness Rhythm: NSR Rate: 72 bpm Other: 94% RA Impression & Plan Right sided numbness, Elevated BP without diagnosis of hypertension, Dehydration Discharge Plan Visit Data *Final* Discharge Date/Time: 04/16/19 03:25 Chief Complaint: Neuro Symptoms/Deficit Stated Complaint: NUMBNESS ON RIGHT SIDEOF BODY ED Provider: Martin Clay Discharge Problem: Right sided numbness, Elevated BP without diagnosis of hypertension, Dehydration Patient Disposition: Admitted As Inpatient Discharge Instructions Interventions: ED Discharge Assessment Last Done: 04/16/19 03:25 The scribe's documentation has been prepared under my direction and personally reviewed by me in its entirety. I confirm that the note above accurately reflects all work, treatment, procedures, and medical decision making performed by me.
[2019-04-16] MEDS ORDERED: ASPIRIN CHEW 324 MG PO STA (02:09)
[2019-04-16 02:50] LABS: Appearance Urine Clear (Clear); Bilirubin Urine Negative (Negative); Blood Urine Negative (Negative); Color Urine Yellow; Glucose Urine UA Negative (Negative); Ketones Urine Negative (Negative); Leukocyte Esterase Urine Negative (Negative); Nitrite Urine Negative (Negative); Protein Urine Negative (Negative); Specific Gravity Urine 1.033 (1.000-1.030); Urobilinogen Urine Negative (Negative)
[2019-04-16] MEDS ORDERED: ONDANSETRON INJ 2 MG/ML 2 ML VIAL IV PRN (04:01)
[2019-04-16] MEDS ORDERED: PHARMACIST DISCHARGE MED REC CONSULT PRN (04:01)
--- NOTE | 2019-04-16 04:39 | History & Physical Report ---
Date of Service April 16, 2019 Assessment & Plan (1) Right sided numbness: Observation to monitored bed. The patient will be admitted to telemetry for serial cardiac enzymes, serial EKG's, cardiac rhythm monitoring and a 2-D echocardiogram with Dopplers. CT of head negative. CTA head and neck negative. MRI brain ordered. Stroke without TPA protocol order set. Consult neurology. Given aspirin 324 mg p.o. in the ED. Continue aspirin 81 mg every morning. Check a fasting lipid panel and hemoglobin A1c. Present on Admission?: Yes (2) Elevated BP without diagnosis of hypertension: Systolic blood pressure minimally elevated in the 150s. Allow for permissive hypertension. Present on Admission?: Yes (3) Dehydration: Placed on IV fluids for gentle rehydration. Present on Admission?: Yes History of Present Illness Chief Complaint: The patient presents to the emergency department with concerns regarding initial development of right leg numbness and tingling at about 1 PM in the afternoon, and then later developed right arm and face numbness and tingling around 8-9 PM this evening. Primary Care Provider: Clarice Spencer MD The patient is a 78-year-old female with a past medical history of a sister who has had a stroke, who presents to the emergency department with symptoms concerning for possible CVA or TIA. She has not had these type symptoms in the past. Her right leg paresthesias along the IT band region. Her right arm, face and leg paresthesias are still persistent at the time of my assessment. Allergies Allergy/AdvReac Type Severity Reaction Status Date / Time No Known Drug Allergies Allergy NKDA Verified 04/16/19 00:13 Home Medications Home Medications Medication Instructions Recorded Confirmed Type No Known Home Medications 04/16/19 04/16/19 History Past Med/Surg History Social History Preferred Language: Nepali Communication Ability: Effective Visual Impairment: No Limitations Hearing Ability: Normal Clock And Watch Hands Dipper Required: No Beliefs That Will Affect Care: None marital status: Current Living Situation: Spouse current occupational status: retired Other Information That Helps Us Care for You: No Feels Safe at Home: Yes Safety Concerns: Feels Safe At This Time Smoking Status: Unknown if ever smoked Hx Alcohol Use: No Hx Substance Use: No Childhood Exposure to Second-Hand Smoke: Yes Dental Care, Regularly: Yes Physical Activity Frequency: Daily Seatbelt Use: always Sunscreen Use: Yes Review of Systems Review of Systems: The patient denies chest pain, palpitations, shortness of breath, dyspnea on exertion, cough, lower extremity swelling, sore throat, fevers, chills, sweats, weight change, vomiting, diarrhea , constipation, abdominal pain, pelvic pain, blood in urine or stool, dysuria, urinary frequency or urgency, lightheadedness, dizziness, headache, memory loss, loss of consciousness, rash, abnormal bruising or bleeding, imbalance, focal or generalized weakness in arms or legs, generalized arthralgias or myalgias, back or neck pain, or night sweats. The review of systems is otherwise negative other than for that already noted above, and at least 10 systems have been reviewed. Physical Exam Physical Exam: The patient is awake, alert and oriented 3, well developed and well nourished, normocephalic and atraumatic, lying in bed and in no acute distress. HEENT--PERRL, EOMI, mucous membranes and oropharynx dry. Neck--supple. No JVD. No bruits. Thyroid normal, trachea midline, no adenopathy. Heart--normal S1 and S2. No murmurs, rubs or gallops. Lungs--clear bilaterally, no respiratory distress, no accessory muscle use. Abdomen--normal bowel sounds and soft. Nontender. Nondistended. Extremities--no cyanosis or clubbing. No edema. There are good distal pulses b/l. Dermatologic--normal skin turgor, normal color, no abnormal lymph nodes, no rash. Neurologic--cranial nerves II through XII grossly intact. Sensation and motor strength upper and lower extremities bilaterally is normal Rheumatologic--normal range of motion. Psychiatric--normal affect. Results & Data Vital Signs (Past 12 Hours) Vital Signs Temp Pulse Pulse Resp BP BP Pulse Ox 04/16/19 03:45 97.9 F 72 16 155/94 H 94 04/16/19 02:30 66 12 97 04/16/19 02:01 64 17 141/77 H 96 04/16/19 01:23 73 20 156/96 H 97 04/15/19 23:55 70 20 155/76 H 94 04/15/19 23:54 95 04/15/19 23:27 97.9 F 70 16 166/91 H 99 Laboratory Results Laboratory Results WBC 7.60 K/uL (4.8-10.8) 04/15/19 23:41 RBC 4.15 M/uL (4.2-5.4) L 04/15/19 23:41 Hgb 13.9 g/dL (12.0-16.0) 04/15/19 23:41 Hct 40.6 % (37-47) 04/15/19 23:41 MCV 97.8 fL (80-100) 04/15/19 23:41 MCH 33.5 pg (25-34) 04/15/19 23:41 MCHC 34.2 g/dL (32-36) 04/15/19 23:41 RDW Std Deviation 44.2 fL (36.4-46.3) 04/15/19 23:41 RDW Coeff of Brando 12.4 % (11.5-14.5) 04/15/19 23:41 Plt Count 220 K/uL (130-400) 04/15/19 23:41 MPV 11.6 fL (7.4-10.4) H 04/15/19 23:41 Immature Gran % (Auto) 0.1 % 04/15/19 23:41 Neut % (Auto) 46.0 % 04/15/19 23:41 Lymph % (Auto) 36.7 % 04/15/19 23:41 [place] % (Auto) 13.6 % 04/15/19 23:41 Eos % (Auto) 3.2 % 04/15/19 23:41 Baso % (Auto) 0.4 % 04/15/19 23:41 Immature Gran # (Auto) 0.01 K/uL (0.00-0.02) 04/15/19 23:41 Neut # (Auto) 3.50 K/uL (1.4-6.5) 04/15/19 23:41 Lymph # (Auto) 2.79 K/uL (1.2-3.4) 04/15/19 23:41 [place] # (Auto) 1.03 K/uL (0.11-0.59) H 04/15/19 23:41 Eos # (Auto) 0.24 K/uL (0-0.5) 04/15/19 23:41 Baso # (Auto) 0.03 K/uL (0-0.2) 04/15/19 23:41 PT 9.9 Seconds (9.0-12.0) 04/15/19 23:41 INR 1.0 (0.9-1.1) 04/15/19 23:41 Sodium 140 mmol/L (136-145) 04/15/19 23:41 Potassium 4.3 mmol/L (3.5-5.1) 04/15/19 23:41 Chloride 110 mmol/L (98-107) H 04/15/19 23:41 Carbon Dioxide 25 mmol/L (21-32) 04/15/19 23:41 Anion Gap 5.0 (3-11) 04/15/19 23:41 BUN 24 mg/dl (7-18) H 04/15/19 23:41 Creatinine 0.92 mg/dl (0.6-1.2) 04/15/19 23:41 Est Cr Clr Drug Dosing 58.2 ml/min 04/15/19 23:41 Est GFR ( Amer) 70.1 04/15/19 23:41 Est GFR (Non-Af Amer) 60.5 04/15/19 23:41 BUN/Creatinine Ratio 26.3 (10-20) H 04/15/19 23:41 Glucose 97 mg/dl (70-99) 04/15/19 23:41 Calcium 9.9 mg/dl (8.5-10.1) 04/15/19 23:41 Phosphorus 3.0 mg/dl (2.5-4.9) 04/15/19 23:41 Magnesium 2.1 mg/dl (1.8-2.4) 04/15/19 23:41 Total Bilirubin 0.2 mg/dl (0.2-1) 04/15/19 23:41 AST 20 U/L (15-37) 04/15/19 23:41 ALT 25 U/L (12-78) 04/15/19 23:41 Alkaline Phosphatase 127 U/L (45-117) H 04/15/19 23:41 Troponin I < 0.015 ng/ml (0-0.045) 04/15/19 23:41 Total Protein 7.4 gm/dl (6.4-8.2) 04/15/19 23:41 Albumin 3.3 gm/dl (3.4-5.0) L 04/15/19 23:41 Globulin 4.1 gm/dl (2.5-4.0) H 04/15/19 23:41 Albumin/Globulin Ratio 0.8 (0.9-2) L 04/15/19 23:41 Lipase 216 U/L (73-393) 04/15/19 23:41 TSH 6.020 uIu/ml (0.300-4.500) H 04/15/19 23:41 Free T4 0.86 ng/dl (0.8-1.6) 04/15/19 23:41 Specimen Hemolysis 04/15/19 23:41 Urine Color Yellow 04/16/19 02:35 Urine Appearance Clear (Clear) 04/16/19 02:35 Urine pH 7.0 (4.5-7.5) 04/16/19 02:35 Ur Specific [place] 1.033 (1.000-1.030) H 04/16/19 02:35 Urine Protein Negative (Negative) 04/16/19 02:35 Urine Glucose (UA) Negative (Negative) 04/16/19 02:35 Urine Ketones Negative (Negative) 04/16/19 02:35 Urine Blood Negative (Negative) 04/16/19 02:35 Urine Nitrite Negative (Negative) 04/16/19 02:35 Urine Bilirubin Negative (Negative) 04/16/19 02:35 Urine Urobilinogen Negative (Negative) 04/16/19 02:35 Ur Leukocyte Esterase Negative (Negative) 04/16/19 02:35 Diagnostic Findings [facility] Patient: BILLY KAPLAN (Female) : 44 test: [id number] Status: ER Date: 04/16/19 01:18 Room #: History: DIZZY, RIGHT SIDE NUMBNESS Slices: 59 Priors: Tech: Dez Paniagua @ [phone] Exams: CT HEAD Accession Numbers: [id number] Preliminary Findings Only See Final Report For Complete Findings CT HEAD: No intracranial hemorrhage, midline shift or mass effect. No evidence for cortical infarct. Paranasal sinuses and mastoid air cells are well-aerated. Radiologist: Julius Tyler MD Study ready at 01:19 and initial results transmitted at 01:49 *This report constitutes a preliminary interpretation only. Non-acute findings felt to be unrelated to the clinical presentation may not be discussed in this report. The study will be interpreted and a final report will be generated by the local Radiologist the following shift. To reach the [facility] radiology dep artment call [phone]. If a discrepancy is found between the preliminary and final interpretations of this study, please notify us via our Client Portal at [email or web address].You can also fax this report with a description of the discrepancy, or include the final report, to our daytime fax number [phone].If faxing, please indicate the severity of discrepancy using one of the following categories: [ ] 1 - Agree/Informational [ ] 2 - Unlikely to Affect Management [ ] 3 - Possible Eventual Change of Management [ ] 4 - Probable Immediate Change of Management For all other patient related information, please fax us at [phone]. [id number] [facility] Patient: BILLY KAPLAN (Female) : 44 test: [id number] Status: ER Date: 04/16/19 01:19 Room #: History: DIZZY, RIGHT SIDE NUMBNESS Slices: 465 Priors: Tech: Siva Dez @ [phone] Exams: CTA HEAD Contrast: IV Amt: 118 ML OPTIRAY 320 Accession Numbers: [id number] Preliminary Findings Only See Final Report For Complete Findings CTA HEAD: The petrous, cavernous and supraclinoid internal carotid arteries are widely patent. The A1 segments and anterior cerebral arteries are patent. The M1 segments and distal middle cerebral branches are patent. No occlusion, significant stenosis, dissection or aneurysm is identified. The distal vertebral arteries are patent. The basilar artery is patent with incidental fenestration. No dissection or occlusion identified. The posterior cerebral arteries are patent. There is an incidental left posterior communicating artery identified. No aneurysm. No abnormal enhancement. Radiologist: Julius Tyler MD Study ready at 01:19 and initial results transmitted at 01:53 *This report constitutes a preliminary interpretation only. Non-acute findings felt to be unrelated to the clinical presentation may not be discussed in this report. The study will be interpreted and a final report will be generated by the local Radiologist the following shift. To reach the hospital radiology department call [phone]. If a discrepancy is found between the preliminary and final interpretations of this study, please notify us via our Client Portal at [email or web address].You can also fax this report with a description of the discrepancy, or include the final report, to our daytime fax number [phone].If faxing, please indicate the severity of discrepancy using one of the following categories: [ ] 1 - Agree/Informational [ ] 2 - Unlikely to Affect Management [ ] 3 - Possible Eventual Change of Management [ ] 4 - Probable Immediate Change of Management For all other patient related information, please fax us at [phone]. [id number] [facility] Patient: BILLY KAPLAN (Female) : 44 test: [id number] Status: ER Date: 04/16/19 01:19 Room #: History: DIZZY, RIGHT SIDE NUMBNESS Slices: 631 Priors: Tech: Dez Paniagua @ [phone] Exams: CTA NECK Contrast: IV Amt: 118 ML OPTIRAY 320 Accession Numbers: [id number] Preliminary Findings Only See Final Report For Complete Findings CTA NECK: Negative cervical CTA examination. The aortic arch is patent without occlusion. The proximal great vessels are unremarkable. The brachiocephalic and common carotid arteries are widely patent. The carotid bifurcations are widely patent without significant narrowing or disease. The internal and external carotid arteries are patent. The vertebral arteries are patent with the left vertebral artery dominant. No dissection, occlusion, stenosis or other abnormality identified. The lung bases and soft tissues demonstrate no significant abnormality. No acute osseous abnormality. Mild degenerative changes incidentally noted. Radiologist: Julius Tyler MD Study ready at 01:21 and initial results transmitted at 01:54 *This report constitutes a preliminary interpretation only. Non-acute findings felt to be unrelated to the clinical presentation may not be discussed in this report. The study will be interpreted and a final report will be generated by the local Radiologist the following shift. To reach the hospital radiology department call [phone]. If a discrepancy is found between the preliminary and final interpretations of this study, please notify us via our Client Portal at [email or web address].You can also fax this report with a description of the discrepancy, or include the final report, to our daytime fax number [phone].If faxing, please indicate the severity of discrepancy using one of the following categories: [ ] 1 - Agree/Informational [ ] 2 - Unlikely to Affect Management [ ] 3 - Possible Eventual Change of Management [ ] 4 - Probable Immediate Change of Management For all other patient related information, please fax us at [phone]. [id number] Code Status & VTE Plan Code Status Full code VTE Prophylaxis Plan VTE Prophylaxis will be ordered: Yes PG Care Time/CCT Total # of Minutes Spent Total Time Spent with Patient: Total time spent is greater than 50% in coordination of care (as documented) at patient's floor/unit and/or counseling patient:
--- NOTE | 2019-04-16 06:31 | CT Scan Report ---
CT head/brain wo con CLINICAL HISTORY: Dizziness, right-sided numbness. COMPARISON STUDY: No previous studies for comparison. TECHNIQUE: Axial CT of the brain is performed from the vertex to the skull base. IV contrast was not administered for this examination. A dose lowering technique was utilized adhering to the principles of ALARA. CT DOSE: FINDINGS: No intra or extra-axial mass lesions are visualized. There is no CT evidence of acute cortical infarc tion. There is no evidence of midline shift. There is no acute hemorrhage. No calvarial fractures ar e visualized. There is no evidence of pathologic ventricular dilatation. There is no evidence of acute sinusitis IMPRESSION: Normal noncontrast head CT for age. Electronically signed by: Chip Leigh M.D. 04/16/2019 6:30 AM
--- NOTE | 2019-04-16 06:33 | CT Scan Report ---
CT angio neck with con HISTORY: Pain. Neuropathy. right sided numbness TECHNIQUE: Multiaxial CT angiography of the neck was performed IV contrast: 100 cc nonionic All lesa urements were calculated based on NASCET criteria. Maximum intensity projection images were also obt ained. A dose lowering technique was utilized adhering to the principles of ALARA. COMPARISON STUDY: None. FINDINGS: The aortic arch and proximal great vessels are widely patent. There is no significant sten osis, occlusion, or dissection identified within the bilateral common carotid, internal carotid, or v ertebral arteries. IMPRESSION: No significant stenosis, occlusion, or dissection identified within the carotid or vertebral arteries . Minimal scattered plaque formation The above report was generated using voice recognition software. It may contain grammatical, syntax or spelling errors. Electronically signed by: Rigoberto Mcfarlane M.D. 04/16/2019 6:31 AM
--- NOTE | 2019-04-16 06:34 | Magnetic Resonance Report ---
MR brain wo con HISTORY: Neuropathy. Mental status change. right side paresthesias TECHNIQUE: Multiplanar multisequence MRI of the brain was performed without the use of contrast. COMPARISON STUDY: None. FINDINGS: There are no areas of restricted diffusion to suggest acute infarction. The midline structu res are intact. The paranasal sinuses are clear. The mastoid air cells are clear. The ventricles and sulci are within normal limits for age. There is no mass, hematoma, midline shift. The major vascular flow-voids at the skull base are well maintained. IMPRESSION: No acute intracranial abnormality. The above report was generated using voice recognition software. It may contain grammatical, syntax or spelling errors. Electronically signed by: Rigoberto Mcfarlane M.D. 04/16/2019 6:33 AM
--- NOTE | 2019-04-16 06:38 | XRay Report ---
XR chest 1V portable CLINICAL HISTORY: 78 years-old Female presenting with Chest Pain. TECHNIQUE: Portable upright AP view of the chest was obtained. COMPARISON: 09/10/2014. FINDINGS: Top normal size of the cardiac silhouette. Mildly heterogeneous lung parenchyma. Minimal left basilar opacity. Lungs and pleural spaces otherwise clear. Osseous structures normal. Upper abdomen normal. IMPRESSION: 1. Minimal left basilar opacity possibly atelectasis or scarring. This would be better assessed with PA and lateral views. No convincing evidence of acute cardiopulmonary disease. Electronically signed by: Tree Russell M.D. 04/16/2019 6:37 AM
--- NOTE | 2019-04-16 06:55 | CT Scan Report ---
CT angio head w con CLINICAL HISTORY: 78 years-old Female presenting with right sided numbness, dizziness. TECHNIQUE: Multidetector CT angiography of the head was performed after the administration of intrave nous contrast. 3-D volumetric and/or maximum intensity projection (MIP) images were subsequently ngoc nstructed for review. IV contrast: 110 mL of Optiray 320. One or more dose lowering techniques were u sed consistent with the principles of ALARA (as low as reasonably achievable), including automatic ex posure control, mA or kV adjustment to individual patient size, and/or use of iterative reconstructio n. COMPARISON: None. CT DOSE (mGy.cm): The estimated cumulative dose is 1068.44 mGy.cm. FINDINGS: System Operation Superintendent topogram: Unremarkable. Anterior circulation: Intracranial portions of the internal carotid arteries patent to the level of t he termini. Anterior cerebral arteries patent. Middle cerebral arteries patent. Anterior communicatin g artery patent. Posterior circulation: Codominant vertebral arteries. Intradural portions of the vertebral arteries p atent. Posterior inferior cerebellar arteries patent. Basilar artery patent with an incidental fenest ration noted.. Anterior inferior cerebellar arteries poorly visualized. Superior cerebellar arteries patent. Posterior cerebral arteries patent. Posterior communicating arteries patent. Dural venous sinuses: Patent. Other: Allowing for the phase of contrast, brain parenchyma within normal limits. Calvarium intact. IMPRESSION: 1. No evidence of aneurysm, focal vessel occlusion, or significant stenosis of the intracranial sri leroy. Electronically signed by: Tree Russell M.D. 04/16/2019 6:54 AM
[2019-04-16 07:11] LABS: Basophils # (auto) 0.04 K/uL (0-0.2); Basophils % (auto) 0.6 %; Eosinophils # (auto) 0.23 K/uL (0-0.5); Eosinophils % (auto) 3.6 %; Hematocrit (blood only) 39.8 % (37-47); Hemoglobin 13.2 g/dL (12.0-16.0); Immature Granulocytes # (auto) 0.01 K/uL (0.00-0.02); Immature Granulocytes % (auto) 0.2 %; Lymphocytes # (auto) 1.85 K/uL (1.2-3.4); Lymphocytes % (auto) 29.2 %; Mean Corpuscular Hemoglobin 32.5 pg (25-34); Mean Corpuscular Hgb Conc 33.2 g/dL (32-36); Mean Platelet Volume 11.2 fL (7.4-10.4); Monocytes % (auto) 9.5 %; Neutrophils # (auto) 3.61 K/uL (1.4-6.5); Neutrophils % (auto) 56.9 %; Platelet Count 206 K/uL (130-400); RDW Coefficient of Variation 12.4 % (11.5-14.5); RDW Standard Deviation 44.4 fL (36.4-46.3); Red Blood Count 4.06 M/uL (4.2-5.4); White Blood Count 6.34 K/uL (4.8-10.8)
[2019-04-16 07:37] LABS: BUN Creatinine Ratio 19.4 (10-20); Calcium 9.5 mg/dl (8.5-10.1); Creatinine Clr Calc Pharmacy 62.4 ml/min; Est GFR (African American) 77.1; Est GFR (Non-African American) 66.6; Potassium 4.1 mmol/L (3.5-5.1)
[2019-04-16 07:40] LABS: Albumin Globulin Ratio 0.8 (0.9-2); Bilirubin,Total 0.3 mg/dl (0.2-1); Globulin 3.9 gm/dl (2.5-4.0); Total Protein 6.9 gm/dl (6.4-8.2)
[2019-04-16] MEDS ORDERED: ATORVASTATIN 40 MG TAB PO SCH (09:00)
[2019-04-16] MEDS ORDERED: HEPARIN SOD 5,000 UNIT/0.5 ML VIAL SQ SCH (09:00)
[2019-04-16 09:58] LABS: Estimated Average Glucose 103 mg/dl; Hemoglobin A1C 5.2 % (4.5-5.6)
[2019-04-16 10:05] LABS: Partial Thromboplastin Ratio 0.9; Partial Thromboplastin Time 23.4 Seconds (21.0-31.0); Prothrombin Time 10.3 Seconds (9.0-12.0)
--- NOTE | 2019-04-16 14:42 | Neurology Consultation ---
Date of Consultation April 16, 2019 Assessment & Plan (1) Right sided numbness: Kellee Newman is a 78 yo woman w/ PMH of vitamin D deficiency and arthritis who p/t [facility] after subacute onset of right-sided numbness. # Right-sided "heaviness": does not really fit a vascular territory given that the face is not involved and there are patchy symptoms in the RLE involving mainly the proximal leg. Could potentially localize to the cervical spine, though reflexes were normal to slightly decreased. Agree with treating like a TIA-equivalent given hypertension and hyperlipidemia found on this admission. - Counseled concerning stroke education, smoking cessation, healthy diet, physical activity, weight loss - Follow up with PCP for assistance with outpatient goals (BP <135/85, LDL <70, A1c <7) - Follow up in neurology clinic in 6-8 weeks - Antiplatelet: ASA 81mg po daily - Anticoagulation: Not indicated at this time - Statin: Atorvastatin 80mg daily Thank you for this interesting consult. Plan of care was discussed with primary team. Please call with any questions. Present on Admission?: Yes History of Present Illness Attending Physician: Kofi Charlton, DO History of Present Illness Kellee Newman is a 78 yo woman w/ PMH of vitamin D deficiency and arthritis who p/t [facility] after subacute onset of right-sided numbness. [employer] ~1pm on 04/15/19 when she first noted numbness in her RLE that spread slowly over hours to involve her right trunk and RUE with radiation into her right neck. She denies ever having anything like this before and only came in because her sister had a stroke previously and she was worried. In the ED, labs showed WBC 7.6, Plts 220, INR 1.0, Cr 0.92, glucose 97, Ca/Mg/Phos WNL, troponin negative, A1c 5.2, LDL 102, TSH elevated at 6.020 with normal free T4, UA no infection. CXR no pneumonia, minimal left basilar opacity (atelectasis vs scarring). Independent review of CTH showed no hemorrhage or hypodensity. CTA head and neck showed no LVO, high grade stenosis or aneurysm. MRI brain was negative for acute infarct; independent review showed no SVID and only minimal generalized atrophy. TTE showed EF 60-65%, mild to moderate MR. She was given aspirin 324 mg and admitted for TIA observation. On examination today, she reports that she continues to have symptoms of "heaviness" in her right thigh, right trunk and RUE that she cannot describe further. Denied any true numbness, tingling, weakness, vision changes, hearing changes or associated headache. Allergies Allergy/AdvReac Type Severity Reaction Status Date / Time No Known Drug Allergies Allergy NKDA Verified 04/16/19 00:13 Home Medications Home Medications Medication Instructions Recorded Confirmed Type No Known Home Medications 04/16/19 04/16/19 History aspirin [Ecotrin Low Strength] 81 mg PO QAM 30 Days #30 tab 04/16/19 Rx atorvastatin 40 mg PO QAM 30 Days #30 tab 04/16/19 Rx Patient History Medical History No known health problems Surgical History History of arthroscopy LEFT KNEE History of colonoscopy History of laparoscopy S/P laser trabeculoplasty of eye RIGHT Family History Brother Prostate cancer Mother Cervical cancer Father Prostate cancer Social History Preferred Language: Portuguese Communication Ability: Effective Visual Impairment: No Limitations 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 Physical Exam Physical Exam: General Exam: GEN: NAD, sitting in bed. HEENT: No conjunctival injection, no rhinorrhea. CV: RRR, no peripheral edema PULM: Nonlabored respirations on room air. Neuro Exam: MS: Awake and Alert. Oriented to person, place, and date. Speech fluent and appropriate without dysarthria or paraphasic errors. Language intact including naming, comprehension, repetition. Cognition and memory grossly intact. Attention intact. No neglect. CN: Visual rehman full. No extinction to double simultaneous stimuli. No optic disc edema on fundoscopic exam. PERRLA OU. EOMI without nystagmus. Facial sensation intact to LT. Facial muscles full and symmetric. Hearing intact to conversation. Uvula midline with symmetric palatal elevation. Shoulder shrug normal. Tongue midline. MOTOR: Normal bulk and tone. No pronator drift. BUE strength 5/5 at deltoids, biceps, triceps, wrist flexors and extensors, and finger flexors bilaterally. BLE strength 5/5 at iliopsoas, hamstrings, quadriceps, tibialis anterior, and gastrocnemius bilaterally. REFLEXES: 1+ at biceps, triceps, brachioradialis, 1+ patella and absent Achilles bilaterally. Flexor plantar responses bilaterally. SENSORY: Intact to LT without extinction to double simultaneous stimuli. Vibration and pinprick intact throughout. COORDINATION: No dysmetria or ataxia on [id number] and [id number] bilaterally. Normal Kendrick bilaterally. GAIT: Normal gait and arm swing. Normal Romberg. NIHSS 0 Results & Data Vital Signs (Past 12 Hours) Vital Signs Temp Pulse Resp BP Pulse Ox Pulse Ox 04/16/19 11:11 37.0 C 63 18 136/72 94 04/16/19 08:07 36.5 C 72 19 145/63 H 93 04/16/19 04:01 94 04/16/19 03:45 36.6 C 72 16 155/94 H 94 Laboratory Results Laboratory Results - last 24 hr 04/15/19 04/15/19 04/15/19 23:41 23:41 23:41 WBC 7.60 RBC 4.15 L Hgb 13.9 Hct 40.6 MCV 97.8 MCH 33.5 MCHC 34.2 RDW Std Deviation 44.2 RDW Coeff of [place] 12.4 Plt Count 220 MPV 11.6 H Immature Gran % (Auto) 0.1 Neut % (Auto) 46.0 Lymph % (Auto) 36.7 [place] % (Auto) 13.6 Eos % (Auto) 3.2 Baso % (Auto) 0.4 Immature Gran # (Auto) 0.01 Neut # (Auto) 3.50 Lymph # (Auto) 2.79 [place] # (Auto) 1.03 H Eos # (Auto) 0.24 Baso # (Auto) 0.03 PT 9.9 INR 1.0 APTT PTT Ratio Sodium 140 Potassium 4.3 Chloride 110 H Carbon Dioxide 25 Anion Gap 5.0 BUN 24 H Creatinine 0.92 Est Cr Clr Drug Dosing 58.2 Est GFR ( Amer) 70.1 Est GFR (Non-Af Amer) 60.5 BUN/Creatinine Ratio 26.3 H Glucose 97 Estimat Average Glucose Hemoglobin A1c Calcium 9.9 Phosphorus 3.0 Magnesium 2.1 Total Bilirubin 0.2 AST 20 ALT 25 Alkaline Phosphatase 127 H Troponin I < 0.015 Total Protein 7.4 Albumin 3.3 L Globulin 4.1 H Albumin/Globulin Ratio 0.8 L Triglycerides Cholesterol LDL Cholesterol, Calc VLDL Cholesterol, Calc HDL Cholesterol Cholesterol/HDL Ratio Lipase 216 TSH 6.020 H Free T4 0.86 Specimen Hemolysis Urine Color Urine Appearance Urine pH Ur Specific [place] Urine Protein Urine Glucose (UA) Urine Ketones Urine Blood Urine Nitrite Urine Bilirubin Urine Urobilinogen Ur Leukocyte Esterase 04/16/19 04/16/19 04/16/19 02:35 06:44 06:44 WBC 6.34 RBC 4.06 L Hgb 13.2 Hct 39.8 MCV 98.0 MCH 32.5 MCHC 33.2 RDW Std Deviation 44.4 RDW Coeff of [place] 12.4 Plt Count 206 MPV 11.2 H Immature Gran % (Auto) 0.2 Neut % (Auto) 56.9 Lymph % (Auto) 29.2 [place] % (Auto) 9.5 Eos % (Auto) 3.6 Baso % (Auto) 0.6 Immature Gran # (Auto) 0.01 Neut # (Auto) 3.61 Lymph # (Auto) 1.85 [place] # (Auto) 0.60 H Eos # (Auto) 0.23 Baso # (Auto) 0.04 PT INR APTT PTT Ratio Sodium 142 Potassium 4.1 Chloride 113 H Carbon Dioxide 24 Anion Gap 5.0 BUN 16 Creatinine 0.85 Est Cr Clr Drug Dosing 62.4 Est GFR ( Amer) 77.1 Est GFR (Non-Af Amer) 66.6 BUN/Creatinine Ratio 19.4 Glucose 87 Estimat Average Glucose Hemoglobin A1c Calcium 9.5 Phosphorus Magnesium Total Bilirubin 0.3 AST 18 ALT 22 Alkaline Phosphatase 110 Troponin I Total Protein 6.9 Albumin 3.0 L Globulin 3.9 Albumin/Globulin Ratio 0.8 L Triglycerides 115 Cholesterol 188 LDL Cholesterol, Calc 102 VLDL Cholesterol, Calc 23 HDL Cholesterol 63 Cholesterol/HDL Ratio 3 Lipase TSH Free T4 Specimen Hemolysis Urine Color Yellow Urine Appearance Clear Urine pH 7.0 Ur Specific [place] 1.033 H Urine Protein Negative Urine Glucose (UA) Negative Urine Ketones Negative Urine Blood Negative Urine Nitrite Negative Urine Bilirubin Negative Urine Urobilinogen Negative Ur Leukocyte Esterase Negative 04/16/19 04/16/19 09:30 09:30 WBC RBC Hgb Hct MCV MCH MCHC RDW Std Deviation RDW Coeff of [place] Plt Count MPV Immature Gran % (Auto) Neut % (Auto) Lymph % (Auto) [place] % (Auto) Eos % (Auto) Baso % (Auto) Immature Gran # (Auto) Neut # (Auto) Lymph # (Auto) [place] # (Auto) Eos # (Auto) Baso # (Auto) PT 10.3 INR 1.0 APTT 23.4 PTT Ratio 0.9 Sodium Potassium Chloride Carbon Dioxide Anion Gap BUN Creatinine Est Cr Clr Drug Dosing Est GFR ( Amer) Est GFR (Non-Af Amer) BUN/Creatinine Ratio Glucose Estimat Average Glucose 103 Hemoglobin A1c 5.2 Calcium Phosphorus Magnesium Total Bilirubin AST ALT Alkaline Phosphatase Troponin I Total Protein Albumin Globulin Albumin/Globulin Ratio Triglycerides Cholesterol LDL Cholesterol, Calc VLDL Cholesterol, Calc HDL Cholesterol Cholesterol/HDL Ratio Lipase TSH Free T4 Specimen Hemolysis Urine Color Urine Appearance Urine pH Ur Specific [place] Urine Protein Urine Glucose (UA) Urine Ketones Urine Blood Urine Nitrite Urine Bilirubin Urine Urobilinogen Ur Leukocyte Esterase PG Care Time/CCT Total # of Minutes Spent Total Time Spent with Patient: Total time spent is greater than 50% in coordination of care (as documented) at patient's floor/unit and/or counseling patient:
--- NOTE | 2019-04-16 16:10 | Medical Student H&P ---
Date of Service April 16, 2019 Assessment & Plan (1) Right sided numbness: Kellee is a 78 yo woman with no significant PMH that presented to the ED on 04/16 due to right sided "numbness and tingling" involving both her upper and lower right extremity. Differential: 1-TIA / Stroke There was no evidence of TIA or stroke on CT, CTA of the head and neck, or MRI. Further, the symptoms described do not fit with the expected TIA picture (retained ability to coordinate movement and retained sensation to touch). The most likely vascular territory involved would be the internal capsule, given the involvement of both UE and LE, however the face is not involved which would typically be seen. However, this can be treated like a TIA-equivalent given the HTN and hyperlipidemia found on admission. Smoking cessation, healthy dietary changes and physical activity were counseled. ASA 81 mg PO daily, and atorvastatin 80 mg daily were initiated. Pt was instructed to follow up with PCP. 2- Cervical Spine Injury The sensation involves both the UE and LE. It does not follow the distribution o f a root. Reflexes are normal to slightly decreased. Therefore C-spine injury is not likely the cause. 3- Complex Migraine A complex migraine could present with these vague sensory changes. Kellee does not endorse a headache. She experienced no photophobia or phonophobia. She has no personal or family history of migraines. Kellee did get cyclic headaches with her menstrual cycle, however went through menopause at 45 and has not had regular headaches since. Therefore, it would not be appropriate to prophylax migraines at this time. Kellee was instructed to follow-up with neurology in 4-6 weeks. History of Present Illness Primary Care Provider: Clarice Spencer MD CC- "The right side of my body is numb with tingles". HPI- Kellee started feeling a "numbness and tingling feeling" in her right leg around 3pm yesterday (04/15). There was no trauma to the area. She did not lose sensation to touch, nor did she loose the ability to coordinate movement. This feeling was constant (no fluctuation in symptoms) and was not relieved or worsened by anything in particular. This has never happened before. This feeling then spread to the upper right extremity and face in the evening. Kellee came to the ED at 3 am (04/16) with the fear that the feeling represented a stroke or TIA. On admission, a CT showed no evidence of acute cortical infarct, hemorrhage or pathologic ventricular dilation. A head and neck CTA showed no evidence for aneurysm, focal vessel occlusion or significant stenosis of intracranial arteries, carotids or vertebral arteries. Findings were confirmed via MRI which showed no areas of acute infarct, no mass, hematoma or midline shift. A CXR showed no evidence of acute cardiopulmonary disease. An Echocardiogram displayed normal L vent size and systolic function. EF of 60-65%. No regional wall abnormalities or LVH. CBC and BMP were WNL. PT and INR were WNL. There were no changes to the numbness and tingling sensation overnight. Kellee retained the ability to coordinate movement, sensation to touch, and proprioception. Allergies Allergy/AdvReac Type Severity Reaction Status Date / Time No Known Drug Allergies Allergy NKDA Verified 04/16/19 00:13 Home Medications Home Medications Medication Instructions Recorded Confirmed Type No Known Home Medications 04/16/19 04/16/19 History aspirin [Ecotrin Low Strength] 81 mg PO QAM 30 Days #30 tab 04/16/19 Rx atorvastatin 40 mg PO QAM 30 Days #30 tab 04/16/19 Rx Past Med/Surg History Medical History No known health problems Surgical History History of arthroscopy LEFT KNEE History of colonoscopy History of laparoscopy S/P laser trabeculoplasty of eye RIGHT Family History Brother Prostate cancer Mother Cervical cancer Father Prostate cancer Social History Preferred Language: Kyrgyz Communication Ability: Effective Visual Impairment: No Limitations Hearing Ability: Normal 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 Beliefs That Will Affect Care: None marital status: Current Living Situation: Spouse current occupational status: retired Feels Safe at Home: Yes Smoking Status: Unknown if ever smoked Hx Alcohol Use: No Hx Substance Use: No Childhood Exposure to Second-Hand Smoke: Yes Dental Care, Regularly: Yes Physical Activity Frequency: Daily Seatbelt Use: always Sunscreen Use: Yes Review of Systems no fever, no chills, no sweats, no body aches, no fatigue and no weakness no diplopia, no loss of peripheral vision, no photophobia, no spots in vision, no tunnel vision and no worsening vision no ear trauma, no tinnitus, no dizziness, no sinus pain/pressure, no hoarseness and no pain with swallowing no dyspnea, no hemoptysis and no pain on inspiration no chest pain, no palpitations, no lightheadedness, no syncope and no edema no nausea, no vomiting, no dysphagia, no change in bowel habits and no melena no difficulty urinating, no urinary frequency, no urinary incontinence and no decreased urination no neck pain, no radicular pain, no joint pain, no stiffness, no limited range of motion, no muscle weakness and no muscle atrophy no wounds, no skin swelling and no axillary lymphadenopathy + tingling, + numbness and + paresthesia; no gait abnormality, no unsteadiness, no localized weakness, no generalized weakness, no paralysis, no loss of sensation, no lack of coordination, no radiating pain, no tremor(s), no abnormal movements, no seizure-like activity, no dizziness, no syncope, no headache(s), no abnormal speech, no confusion and no memory loss no behavioral changes, no suicidal ideation and no panic attacks no polydipsia, no polyphagia and no hyperhidrosis no coagulopathy and no unexplained weight loss Physical Exam Constitutional: comfortable; no acute distress Eyes: normal visual rehman by confrontation, EOM intact bilaterally and reactive pupils; no retinal abnormality, no nystagmus and no photophobia ENMT: Ears: no TM abnormality, Loza normal and Rinne normal Throat: uvula midline Neck: trachea midline, no thyromegaly Respiratory: normal respiratory effort, lungs clear to auscultation Cardiovascular: RRR, no murmur, no edema Vessels: no JVD Extremities: normal capillary refill Chest (Breasts): normal inspection/palpation of breasts Gastrointestinal (Abdomen): normal bowel sounds, soft, nontender, no hepatosplenomegaly Musculoskeletal: no cyanosis or clubbing, extremities motor strength 5/5 Head/Neck/Chest: head atraumatic and neck supple; full ROM of neck Spine: normal cervical lordosis and lumbar spine normal to inspection; no step off deformity and straight leg raise positive tilt absent Extremities: extremities normal to inspection and strength 5/5 throughout Gait: normal gait Results & Data Vital Signs (Past 12 Hours) Vital Signs Temp Pulse Resp BP Pulse Ox 04/16/19 15:43 37.0 C 71 17 141/65 H 96 04/16/19 14:49 96 04/16/19 11:11 37.0 C 63 18 136/72 94 04/16/19 08:07 36.5 C 72 19 145/63 H 93 Laboratory Tests 04/16/19 04/16/19 06:44 09:30 WBC 6.34 Hgb 13.2 PT 10.3 INR 1.0 APTT 23.4 Code Status & VTE Plan VTE Prophylaxis Plan VTE Prophylaxis will be ordered: Yes
[2019-04-16] MEDS ORDERED: STROKE PATIENT DISCHARGE STA (16:39)
--- NOTE | 2019-04-16 17:18 | Pharmacy Report ---
Pharmacist Stroke Counseling - Date of Service April 16, 2019 - Scope: Pharmacy has been consulted to provide medication discharge counseling for this patient admitted with ischemic stroke vs. transient ischemic attack as per the Pharmacist Discharge Counseling for Stroke Patients Protocol. - Medications on Discharge: Home Medications Medication Instructions Recorded Confirmed No Known Home Medications 04/16/19 04/16/19 New Rx's Medication Instructions Recorded aspirin [Ecotrin Low Strength] 81 mg PO QAM 30 Days #30 tab 04/16/19 atorvastatin 40 mg PO QAM 30 Days #30 tab 04/16/19 - Action: The above medications, specifically ones for stroke treatment/prophylaxis, have been reviewed in detail with the patient and/or patient screening representative(s) prior to discharge. This includes indication, common adverse reactions, drug interactions, and medication administration. Medication counseling has been employed using the teach-back method to ensure understanding. - Outcome: The patient and/or patient screening representative(s) have demonstrated understanding of the medications. Please note, they are aware that the pharmacist will call them within 72 hours post-discharge to confirm that the appropriate medications are being taken and answer any further medication related questions the patient might have at that time. Contact information Individual to be contacted: Kellee Relationship to patient (if applicable): patient Phone number: Best time to call: Anytime Additional comments: -Counseled patient and patient's on new medications listed above. -Patient declined pillbox Thank you for allowing pharmacy to be involved in the care of this patient. Please call [phone] or [phone] with any additional questions
[2019-04-17] MEDS ORDERED: ASPIRIN 81 MG ECTAB PO SCH (09:00)
--- NOTE | 2019-04-20 15:38 | Pharmacy Report ---
Pharmacist Post D/C Phone Note - Phone Note: Date of phone call: April 20, 2019. The patient and/or patient truck sales representative(s) were unable to be reached for a follow-up phone call within the 72 hour time frame. Discharge counseling pharmacist contact information has already been provided to the patient should questions arise. Thank you for allowing us to be involved in the care of this patient. - Home Medications: Home Medications Medication Instructions Recorded Confirmed No Known Home Medications 04/16/19 04/16/19 New Rx's Medication Instructions Recorded aspirin [Ecotrin Low Strength] 81 mg PO QAM 30 Days #30 tab 04/16/19 atorvastatin 40 mg PO QAM 30 Days #30 tab 04/16/19
--- NOTE | 2019-04-27 14:17 | Discharge Summary ---
Date of Service April 16, 2019 Admission HPI Per Admitting Provider The patient is a 78-year-old female with a past medical history of a sister who has had a stroke, who presents to the emergency department with symptoms concerning for possible CVA or TIA. She has not had these type symptoms in the past. Her right leg paresthesias along the IT band region. Her right arm, face and leg paresthesias are still persistent at the time of my assessment. Principal Diagnosis Acute neurologic symptom of paresthesia, possible TIA Discharge Exam Constitutional WD/WN, vitals as above Eyes PERRL, conjunctivae normal, anicteric sclerae ENMT external ear and nose normal, oropharynx normal Neck trachea midline, no thyromegaly Respiratory normal respiratory effort, lungs clear to auscultation Cardiovascular RRR, no murmur, no edema Gastrointestinal (Abdomen) normal bowel sounds, soft, nontender, no hepatosplenomegaly Musculoskeletal no cyanosis or clubbing, extremities motor strength 5/5 Skin no rashes, warm and dry Neurologic PERRL, EOMI, accommodation nl, no face palsy, no dysarthria + abnormal touch/pain/proprioception (decreased sensation to light touch right side) Psychiatric A+Ox3, euthymic affect Lymphatic no cervical or axillary lymphadenopathy Discharge Data Allergies Allergy/AdvReac Type Severity Reaction Status Date / Time No Known Drug Allergies Allergy NKDA Verified 04/23/19 10:28 Consultations 04/16/19 02:03 ED Decision to Admit Stat 04/16/19 04:01 Consult Case Management - Discharge Planning Routine Consult Neurology Routine Ordered Studies 04/15/19 23:49 CT angio head w con Urgent CT angio neck with con Urgent CT head/brain wo con Urgent 04/16/19 02:37 MR brain wo con Stat Hospital Course (1) Right sided numbness: Right sided paresthesia, possible small stroke/TIA MRI brain normal echocardiogram normal Dr. Shen recommends taking Lipitor, aspirin daily your blood pressure is mildly elevated, would recommend following up with your PCP if blood pressure is >140/90 in office then would recommend your PCP start a blood pressure medication Dr. Shen would like to see you in the neurology clinic in 6 weeks (2) Elevated BP without diagnosis of hypertension: Systolic blood pressure minimally elevated in the 150s. Allow for permissive hypertension. follow up with PCP, if BP elevated in office then should start BP medication, defer to PCP (3) Dehydration: Placed on IV fluids for gentle rehydration. resolved within 12 hours Total Time Total Time Spent Total Time Spent (In Minutes): 35 Total Time Includes: Examination of the Patient, Discharge Planning, Medication Reconciliation and Communication With Other Providers Discharge Plan Discharge Items Patient Disposition: Home - Self-Care Reason For Visit: RIGHT ISDE PARESTHESIAS Discharge Diagnosis: Right side paresthesia, possible TIA Condition on Discharge: Good Activity: Resume your previous activity Non-emergency contact: Primary Care Provider Call non-emergency contact if: you have any medication questions and your symptoms worsen Follow-up/Referrals: Clarice Spencer MD [Primary Care Provider] - 04/23/19 10:15 am (Please, follow up with Dr. Spencer on April 23 at 10:15 am. *If you need to change this appointment, call the office at [phone].) Diet: Regular Addtl Attending Provider Instructions: Medications: - LIPITOR: 40mg daily, this is statin that will lower cholesterol but also stabilize any plaques in small vessels - ASPIRIN: 81mg daily Right sided paresthesia, possible small stroke/TIA MRI brain normal echocardiogram normal Dr. Shen recommends taking Lipitor, aspirin daily your blood pressure is mildly elevated, would recommend following up with your PCP if blood pressure is >140/90 in office then would recommend your PCP start a blood pressure medication Dr. Shen would like to see you in the neurology clinic in 6 weeks FOLLOW UP - Dr. Spencer in one week, call her office for follow up visit, request hospital follow up, get blood pressure check - Dr. Shen in neurology clinic in 6 weeks, call [phone] Pending Studies at Discharge: No Stand-Alone Forms: Medications to Prevent Stroke, [employer], Smoking Cessation Medications and DC Order Prescriptions: No Action No Known Home Medications RF: 0 Discharge Orders: Discharge Order (Routine); Ordered 04/16/19 Ordered By: Kofi Todd/Other Patient Handouts: Stroke Sx, TIA Admission Data Admit Date/Time: 04/16/19 02:45 Attending Provider: Kofi Charlton Admit Provider: Enrique East Primary Care Provider: Clarice Spencer Other Providers: Enrique East ; Sergei Coronel III Other Interventions: Discharge Summary Assessment (RN) Last Done: 04/16/19 16:55 DC Date/Time DO NOT enter until pt leaves facility: 04/16/19 17:36
--- NOTE | 2019-05-04 07:48 | Coding Query ---
A supporting diagnosis is required for the test/procedure performed on this patient in order for us to be reimbursed by the patient's insurance. Please provide a supporting diagnosis for the following test/procedure listed below next to the test name along with your signature. *If there is no additional diagnosis for this patient that would support the following test/procedure please document that below next to the test/procedure. Test(s)/Procedure(s) that require a supporting diagnosis: * 34497 GLYCATED HEMOGLOBIN DIAGNOSIS:hyperlgycemia DATE OF SERVICE: 04/16/19 Provider Signature: Date: Thank you Anjum Shannon [facility] Information Management Once completed, please kindly fax back to [phone] For questions please call [phone] JULIANNA
== END 2019-04-16 17:36 | disposition home or self-care (01) ==
LOC: ED 23:23 → 2E 23:23 → SUATTDRO 04-16 02:45 → 2E 04-16 03:25